=== PATIENT | female | born 1970 | race Hispanic/Latino ===

== ENCOUNTER 2017-04-23 13:14 | Day surgery (SDC) | payer BC ==
[~2017-04-23 13:14] MED LIST: ANCEF/STERILE WATER 2 GM/20 ML IV NR
[2017-04-23] MEDS ORDERED: NACL 0.9% 1000 ML 1,000 ML IV SCH (14:03)
[2017-04-23] MEDS ORDERED: VERSED IV NR (14:03)
[2017-04-23] MEDS ORDERED: PEPCID PO NR (14:03)
[2017-04-23] MEDS ORDERED: ZOFRAN IV PRN (14:04)
--- NOTE | 2017-04-23 14:11 | Anesthesia Consultation ---
Anesthesia Consult and Med Hx Date of service: 04/23/17 - Airway ROM Head & Neck: Adequate Mental/Hyoid Distance: Adequate Mallampati Class: Class II Intubation Access Assessment: Probably Good - Pulmonary Exam CTA: Yes - Cardiac Exam Cardiac Exam: RRR - Pre-Operative Health Status ASA Pre-Surgery Classification: ASA3 Proposed Anesthetic Plan: General - Pulmonary Hx Smoking: Yes (1 PPD X 30 YRS) Hx Asthma: No COPD: No Hx Sleep Apnea: No (BETTINA PRE SCREEN HIGH RISK) - Cardiovascular System Hx Hypertension: Yes (X 2 YRS) Hx Cardia Arrhythmia: Yes (frequent PVCs) - Central Nervous System Hx Back Pain: Yes (chronic pain, h/o ACDF, lumbar stenosis, carpal tunnel syn) Hx Psychiatric Problems: Yes (anxiety) - Gastrointestinal Hx Gastroesophageal Reflux Disease: Yes - Endocrine Hx Renal Disease: No (stones) Hx Non-Insulin Dependent Diabetes: No Hx Hypothyroidism: Yes (GOITER "JUST WATCHING") - Hematic Hx Anemia: Yes (NOT RECENT) - Other Systems Hx Cancer: No Hx Obesity: Yes
--- NOTE | 2017-04-23 14:13 | Anesthesia Day of Surgery ---
Anesthesia Day of Surgery - Day of Surgery Patient Examined: Yes Patient H&P Reviewed: Yes Patient is NPO: Yes Beta Blockers: Yes
[2017-04-23] MEDS ORDERED: NACL BACTERIOSTATIC INFILTRATI ONE (14:43)
[2017-04-23] MEDS ORDERED: XYLOCAINE MPF 2% ONE (15:21)
[2017-04-23] MEDS ORDERED: DIPRIVAN 10 MG/ML IV ONE (15:21)
[2017-04-23] MEDS ORDERED: DILAUDID ONE (15:21)
[2017-04-23] MEDS ORDERED: WATER FOR IRRIG STERILE IR ONE (15:54)
[2017-04-23] MEDS ORDERED: OMNIPAQUE 300 MG/50 ML (CATH LAB) IV ONE (15:55)
[2017-04-23] MEDS ORDERED: ZOFRAN ONE (16:01)
[2017-04-23] MEDS ORDERED: DECADRON ONE (16:01)
[2017-04-23] MEDS: DILAUDID IV PRN ×4 (16:54→17:46)
--- NOTE | 2017-04-23 16:55 | Short Stay Summary ---
Short Stay Documentation Date of service: 04/23/17 - History H&P: obtained from office - Allergies and Medications Current Medications: Allergies diphenhydramine HCl [From Benadryl] Allergy (Verified 04/15/17 16:48) AGITATION , FIGHTING REACTION TO IV BENADRYL ibuprofen Allergy (Verified 04/15/17 16:48) Vomiting tramadol HCl [From Ultram] Allergy (Verified 04/15/17 16:48) Vomiting Home Medications Medication Instructions Recorded Confirmed Last Taken Type ALPRAZolam [Xanax TAB] 0.5 mg PO BID 04/17/17 04/17/17 04/22/17 History Aspirin [Adult Low Dose Aspirin EC] 81 mg PO DAILY 04/17/17 04/17/17 04/15/17 History Buspirone HCl [busPIRone] 15 mg PO BID 04/17/17 04/17/17 04/22/17 History Gabapentin [Neurontin] 600 mg PO TID 04/17/17 04/17/17 04/22/17 History Lorcaserin HCl [Belviq] 10 mg PO BID 04/17/17 04/17/17 04/15/17 History Lovastatin [Altoprev] 40 mg PO QPM 04/17/17 04/17/17 04/22/17 History Meloxicam [Mobic] 7.5 mg PO QDAY 04/17/17 04/17/17 04/15/17 History Metoprolol [Lopressor] 25 mg PO DAILY 04/17/17 04/23/17 04/22/17 20:00 History Morphine ER [Ms Contin ER] 30 mg PO BID 04/17/17 04/17/17 04/22/17 History Omeprazole Magnesium [PriLOSEC Otc] 20 mg PO QDAY 04/17/17 04/17/17 04/22/17 History oxyCODONE /ACETAMINOPHEN [Percocet 1 tab PO PRN PRN 04/17/17 04/17/17 04/22/17 History 5/325 mg] Active Medications Cefazolin Sodium (Ancef/Sterile Water 2 Gm/20 Ml) 2 gm IV PREOP NR Stop: 04/23/17 23:00 Famotidine (Pepcid) 20 mg PO PREOP NR Stop: 04/23/17 23:04 Last Admin: 04/23/17 14:53 Dose: 20 mg Hydromorphone HCl (Dilaudid) 0.5 mg IV Q10MIN PRN PRN Reason: Pain , Severe (7-10) Stop: 04/26/17 14:05 Sodium Chloride (Nacl 0.9% 1000 Ml) 1,000 mls @ 75 mls/hr IV DIRECT LAURIE Last Admin: 04/23/17 14:58 Dose: 75 mls/hr Midazolam HCl (Versed) 2 mg IV PREOP NR Stop: 04/23/17 23:59 Last Admin: 04/23/17 15:14 Dose: 2 mg - Brief post op/procedure progress note Date of procedure: 04/23/17 Pre-op diagnosis: left ureteral stone Post-op diagnosis: same Procedure: cysto, rpg, left ureteroscopy stone manulation, attempted basket extraction, laser, JJ stent 6x24 Anesthesia: GETA Surgeon: BHUMIKA JUÁREZ Estimated blood loss: minimal Pathology: none Condition: stable - Hospital course Hospital course: cipro, percocet 5mg, post op info on chart - Disposition Condition at discharge: Stable Disposition: DC-01 TO HOME OR SELFCARE Short Stay Discharge Plan Follow up with: CALLIE BLAS PA [Primary Care Provider] - 7 Days
--- NOTE | 2017-04-23 17:34 | Post Anesthesia Evaluation ---
- Post Anesthesia Evaluation Patient Participated: Yes Airway Patent: Yes Stable Respiratory Function: Yes Nausea/Vomiting: No Temp > 96.8F: Yes Pain Manageable: Yes Adequeate Hydration: Yes Anesthesia Complications: No
[2017-04-23] MEDS ORDERED: OxyCONTIN PO PRN (17:51)
[2017-04-23 20:07] VITALS: BP 112/78
--- NOTE | 2017-04-24 08:19 | Fluoroscopy Report ---
TEN FLUOROSCOPIC IMAGES AT BILATERAL RETROGRADE PYELOGRAM: 04/23/17 CLINICAL: Left kidney stone. FINDINGS: Social Service Technician images are normal. Subsequent images demonstrate bilateral retrograde opacification of the ureters and renal collecting systems. Normal right renal like consistent. Minimal retrograde filling of a moderately dilated left intrarenal collecting system. Final images show placement of a left ureteral stent. For more detail, please refer to the operative report.
--- NOTE | 2017-05-03 13:40 | Post Operative Note ---
Date of procedure: 04/23/17 Pre-op diagnosis: left proximal ureteral stone Post-op diagnosis: same Procedure: cysto, rpg, left ureteroscopy stone manulation, holium laser,attempted basket extraction, laser, JJ stent 6x24 Indications This patient is a 46-year-old female seen in the office. Had left flank pain CT of abdomen and pelvis revealed 8 mm proximal ureteral stone. She presents now for surgical intervention risks benefits complications were explained. Procedure Patient was taken of the operative suite placed in supine position after adequate general anesthesia a dorsal lithotomy position prepped and draped in a sterile fashion. Cystoscopy was performed with a 22 [place]an Storz cystoscope no bladder pathology could be appreciated. Both ureteral orifices were normal position. Bilateral retrograde pyelograms were obtained with an 8 [place]an Terrence catheter and 8 mL of contrast. No filling defects or obstruction on the right. There was some filling defect in the proximal ureter on the left side. 2.035 Glidewire was placed in the left ureter which it ureteroscopy to the renal pelvis revealed a stone. Using the holmium laser with a 200 fiber, lithotripsy was performed starting at 4 W. Adequate fragmentation could be appreciated a 6 Singaporean 24 cm double-J stent was left indwelling. Fluoroscopy confirmed adequate position. Patient tolerated the procedure well she is extubated taken to recovery room in stable condition Anesthesia: TITIA Surgeon: BHUMIKA JUÁREZ Estimated blood loss: none Pathology: none Condition: stable Disposition: PACU
== END 2017-04-23 19:30 | disposition home or self-care (01) ==
LOC: OR 13:14
PROVIDERS: ATTEND Urology
DX: N20.1 Calculus of ureter (principal); I10 Essential (primary) hypertension; F41.9 Anxiety disorder, unspecified; K21.9 Gastro-esophageal reflux disease without esophagitis; E03.9 Hypothyroidism, unspecified; E66.9 Obesity, unspecified; Z68.37 Body mass index [BMI] 37.0-37.9, adult; Z87.891 Personal history of nicotine dependence; Z79.899 Other long term (current) drug therapy; Z88.8 Allergy status to other drugs, medicaments and biological substances
CPT/HCPCS: 52356; 74420; 81025; 82962; 93005; 93010; A4217; C1758; C1769; C2617; J0690; J1100; J1170; J2250; J2405; J2704; J7030; Q9967

== ENCOUNTER 2017-05-01 09:47 | Outpatient (CLI) | payer BC ==
--- NOTE | 2017-05-01 14:56 | Cat Scan Report ---
CT scan of abdomen and pelvis without IV contrast: History: Calculus of ureter. Findings: Bibasilar scarring/segmental atelectasis. Normal liver spleen and pancreas. Normal gallbladder. Normal adrenals. There is stable left ureteral stent noted. There is noted nonobstructing 3 mm calculus lower pole left kidney. There is nonobstructing one mm calculus noted at the mid pole and lower pole right kidney. No calculi along the course of ureter and the stent. No calculus in the bladder. Calcification of the uterus probably calcified fibroids. No free intraperitoneal fluid or. No evidence of adenopathy. No evidence of appendicitis or diverticulitis. Stool in colon. Impression: Stable left ureteral stent. Nonobstructing calculus lower pole left kidney. 1 mm non-obstructing calculi right kidney.
== END 2017-05-01 09:48 | disposition home or self-care (01) ==
LOC: US 09:47 → CT 09:47
PROVIDERS: ATTEND Urology
DX: N20.0 Calculus of kidney (principal); I10 Essential (primary) hypertension; E78.00 Pure hypercholesterolemia, unspecified; D64.9 Anemia, unspecified; F41.9 Anxiety disorder, unspecified; F17.200 Nicotine dependence, unspecified, uncomplicated
CPT/HCPCS: 74176